=== PATIENT | female | born 1935 | race Caucasian/White ===

== ENCOUNTER 2017-01-25 00:24 | Inpatient (IN) | payer OTHER ==
[~2017-01-25] VITALS: Ht 154.9 cm; Wt 63.5 kg
[2017-01-25 01:10] VITALS: BP 113/64; PULSE 79; RESP 17; TEMP 98.6; O2SAT 95
--- NOTE | 2017-01-25 01:20 | NUR ---
Pt states that she has multiple falls all day. Pt states she been feeling weak were she has been having trouble walking. Pt states she did hit the floor. Pt noted to have bruising on the arms and some redness on the bridge of her nose. Pt rates her headache 5/10. Pt states she has nausea with dizziness and shakiness. Will continue to monitor via property assessment monitor. No distress noted.
--- NOTE | 2017-01-25 01:20 | NUR ---
Placed in room 1 . Placed on adult neuropsychologist, blood pressure machine and pulse oximeter. To gown for exam. Side rails up. Report given to Carlton MOTTA.
[2017-01-25] MEDS ORDERED: ATOR40TA68 PO (01:54)
[2017-01-25] MEDS ORDERED: METO5TAB86 PO (01:59)
[2017-01-25] MEDS ORDERED: DULO60CA41 PO (02:00)
[2017-01-25] MEDS ORDERED: LISI-221 PO (02:03)
[2017-01-25] MEDS ORDERED: LEVO75TA7 PO (02:04)
[2017-01-25] MEDS ORDERED: TAPE100T9 PO (02:05)
[2017-01-25] MEDS ORDERED: RANI150T8 PO (02:06)
[2017-01-25] MEDS ORDERED: HYDR-4100 PO (02:08)
[2017-01-25] MEDS ORDERED: PRO40 PO (02:15)
[2017-01-25] MEDS ORDERED: PREG100C PO (02:15)
[2017-01-25] MEDS ORDERED: NACL 0.9% 1,000 ML IV ONE (02:15)
--- NOTE | 2017-01-25 02:16 | NUR ---
LOUISE Ferrer at bedside examining patient.
--- NOTE | 2017-01-25 02:40 | NUR ---
# 20 gauge angiocath placed to L AC. Use of asceptic technique. Opsite placed over site. Blood return noted. Two patient identifiers used. Blood for lab drawn from site. Flushed with 10 cc of normal saline. No evidence of infiltration noted. Patient tolerated well.
[2017-01-25 03:02] LABS: BASOPHILS % (AUTO) 0.3 % (0.0-2.0); EOSINOPHILS # (AUTO) 0.1 K/uL (0.0-0.4); EOSINOPHILS % (AUTO) 0.6 % (0.0-4.0); HEMATOCRIT 36.7 % (36-48); HEMOGLOBIN 12.6 g/dL (12.0-16.0); LYMPHOCYTES % (AUTO) 8.7 % (20.5-51.5); MEAN CORPUSCULAR HEMOGLOBIN 34 pg (27-31); MEAN CORPUSCULAR HGB CONC 34 % (32-36); MEAN CORPUSCULAR VOLUME 98 fL (79.0-98.0); MONOCYTES # (AUTO) 1.2 K/uL (0.0-1.0); MONOCYTES % (AUTO) 10.1 % (1.7-9.3); NEUTROPHILS # (AUTO) 9.5 K/uL (1.8-7.7); NEUTROPHILS % (AUTO) 80.3 % (40.0-70.0); PLATELET COUNT (AUTO) 186 K/uL (130-430); RED BLOOD CELL COUNT(AUTO) 3.74 MIL/uL (4.2-6.2); RED CELL DISTRIBUTION WIDTH 12.4 % (9.0-15.0); WHITE BLOOD COUNT (AUTO) 11.8 K/uL (4.8-10.8)
[2017-01-25 03:12] LABS: ANION GAP 5 (5-15); CALCIUM 10.7 mg/dL (8.4-11.0); CHLORIDE 103 mmol/L (98-107); CREATININE 1.64 mg/dL (0.55-1.30); GLUCOSE 102 mg/dL (70-99); POTASSIUM 3.4 mmol/L (3.5-5.1); SODIUM SERUM 141 mmol/L (136-145); UREA NITROGEN, BLOOD 35 mg/dL (8-21)
[2017-01-25 03:20] LABS: ALANINE AMINOTRANSFERASE 14 U/L (12-78); ALBUMIN 3.4 g/dL (3.4-4.8); ASPARTATE AMINOTRANSFERASE 50 U/L (10-37); LIPASE 48 U/L (73-393); TOTAL BILIRUBIN 0.8 mg/dL (0.0-1.0); TOTAL PROTEIN, SERUM 6.6 g/dL (6.4-8.3)
--- NOTE | 2017-01-25 03:30 | NUR ---
Pt resting comfortably in bed. VSS. WIll continue to monitor via library monitor. No distress noted.
--- NOTE | 2017-01-25 04:00 | NUR ---
# 16 FR In and Out catheter with use of sterile technique. Immediate return of 300 ml chasity urine noted. Urine sample collected and sent to lab. Pt tolerated procedure well. Patient unable to toilet self.
[2017-01-25 04:27] LABS: BILIRUBIN,URINE NEGATIVE (NEGATIVE); BLOOD, URINE NEGATIVE (NEGATIVE); CLARITY/URINE CLEAR (CLEAR); COLOR,URINE YELLOW (YELLOW); GLUCOSE,URINE NEGATIVE (NEGATIVE); KETONES,URINE NEGATIVE (NEGATIVE); LEUKOCYTE ESTERASE ,URINE NEGATIVE (NEGATIVE); NITRITE, URINE NEGATIVE (NEGATIVE); PH,URINE 5.5 (5.0-8.0); PROTEIN URINE NEGATIVE (NEGATIVE); UROBILINOGEN,URINE 0.2 (0.2-1.0)
--- NOTE | 2017-01-25 06:30 | NUR ---
ADMISSION NOTE Received patient from ER via gurney, received report from RN. Patient admitted with diagnosis of Acute Renal Failure/Dehydration. Patient oriented to hospital routine, call light, toileting and safety-patient verbalized understanding.
[2017-01-25 06:32] VITALS: BP 114/78; PULSE 82; RESP 18; TEMP 99.6; O2SAT 94
--- NOTE | 2017-01-25 06:40 | NUR ---
Patient will be admitted to care of Dr. Dubose. Admitted to Med Surg unit. Will go to room 135. Summary report printed. Report given to Jeannette MOTTA.
--- NOTE | 2017-01-25 07:45 | NUR ---
am assessment received pt in bed. res even and unlabored. denies c/o of pain.not in acute distress.poc discussed with pt .pt verbalized understanding. will continue to monitor
--- NOTE | 2017-01-25 08:30 | NUR ---
iv infiltration iv infiltrated lac. new iv line started. l hand #22 . by AN RN.flushed WELL. IV INFUSING WELL
--- NOTE | 2017-01-25 08:41 | NUR ---
[place] Consult: for Dr. Sandoval, regarding falls, ordered by Dr. Walsh, spoke with
[2017-01-25] MEDS ORDERED: PREGABALIN 100 MG PO SCH (09:00)
[2017-01-25] MEDS ORDERED: NON-FORMULARY MEDICATION (Ranitidine Hcl 150 MG) PO SCH (09:00)
[2017-01-25 09:35] LABS: CKMB RELATIVE INDEX 0.2 (0.0-2.9); CREATINE KINASE MB 3.6 ng/mL (0-3.6)
[2017-01-25] MEDS ORDERED: PREGABALIN 25 MG CAPSULE (LYRICA) PO ONE (10:00)
[2017-01-25] MEDS ORDERED: FAMOTIDINE 20 MG TABLET PO ONE (10:00)
[2017-01-25 10:09] LABS: CKMB RELATIVE INDEX 0.1 (0.0-2.9); CREATINE KINASE MB 2.5 ng/mL (0-3.6)
[2017-01-25] MEDS: D5/0.45 NS 1,000 ML IV SCH (10:38)
--- NOTE | 2017-01-25 10:44 | NUR ---
meds due meds given as ordered pt resting comfortably.
[2017-01-25] MEDS ORDERED: LEVOFLOXACIN 500 MG/D5W 100 ML IV ONE (11:00)
[2017-01-25 12:36] VITALS: BP 115/64; PULSE 80; RESP 16; TEMP 98.5; O2SAT 97
[2017-01-25] MEDS ORDERED: levETIRAcetam 500 MG TABLET PO ONE (13:45)
[2017-01-25] MEDS: PANTOPRAZOLE SODIUM 40 MG TAB PO SCH ×2 (15:13→20:36)
--- NOTE | 2017-01-25 15:14 | NUR ---
rounds pt stable not in acute distress. ivf infusing denies pain or orther discomfort
--- NOTE | 2017-01-25 15:30 | NUR ---
mri pt went for mri in stable condition
--- NOTE | 2017-01-25 16:00 | NUR ---
rounds pt in bed resting comfortably.not in acute distress. bed ackerman provided.pt cleaned and repostioned
[2017-01-25 16:21] VITALS: BP 135/75; PULSE 88; RESP 17; TEMP 99.1; O2SAT 93
[2017-01-25] MEDS: PREGABALIN 25 MG CAPSULE (LYRICA) PO SCH ×2 (16:48→20:36)
--- NOTE | 2017-01-25 17:30 | NUR ---
rounds pt stable not in acute distress. resting comfortably. no s/s of pain or distress noted
--- NOTE | 2017-01-25 19:22 | NUR ---
PAGE DR ESCOBEDO, SPOKE WITH NIXON, PHONE NUMBER: [phone]
--- NOTE | 2017-01-25 19:30 | NUR ---
closing notes pt stable . resting comfortably. son at bed side. ivf infusing well. report given to night rn
--- NOTE | 2017-01-25 19:30 | NUR ---
Report LAB result to Dr. Walsh and med (Haddock) modified Informed Dr. Walsh regarding CK 177, no new order received. Also informed Dr. Walsh regarding Haddock given through CONSULTING ENGINEER, but patient was taking PO at home, not using CONSULTING ENGINEER here. changed med to PO for mod to severe pain.
[2017-01-25 19:48] VITALS: BP 142/76; PULSE 84; RESP 17; TEMP 97.7; O2SAT 91
--- NOTE | 2017-01-25 20:00 | NUR ---
Initial note A/O x 4, no SOB, no chest pain, denied pain at this time, but stated usually c/o pain at back and legs. Skin warm to touch, IV at L hand, patent and continued D5 1/2 NS @ 80 ml/hr. No edema, +2 radial and pedal pulses palpated. Encouraged patient to drink more fluids. Keppra handout given to son (Edwin), provided education. Bed at lowest position, bed alarm on, call light within reach, will continue to monitor patient.
[2017-01-25] MEDS: levETIRAcetam 500 MG TABLET PO SCH (20:36)
--- NOTE | 2017-01-25 22:00 | NUR ---
Rounds Sleeping/resting in bed. No SOB, no chest pain, no grimacing. IV at L hand, patent and continued D5 1/2 NS @ 80 ml/hr. Bed at lowest position, bed alarm on, call light within reach, will continue to monitor patient.
[2017-01-25 23:48] VITALS: BP 125/67; PULSE 96; RESP 16; TEMP 99.5; O2SAT 94
[2017-01-26] MEDS: D5/0.45 NS 1,000 ML IV SCH ×2 (00:54→07:10)
--- NOTE | 2017-01-26 01:27 | NUR ---
Hands off report Sleeping/resting in bed. No SOB, no chest pain, no grimacing. Skin warm to touch. IV at L hand, patent and continued D5 1/2 NS @ 80 ml/hr. Changed chux due to urination and BM. Bed at lowest position, bed alarm on, call light within reach, report given to Kathia. Addendum: 01/26/17 at 0149 by Siddharth Cordoba RN Hands off report to E[place], not Kathia.
--- NOTE | 2017-01-26 01:30 | NUR ---
STARTING NOTE ON TRANSFER CARE Patient in bed sleeping. No S/S of respiratory distress or pain noted. IVF D51/2 NS at 80cc/hr running. Fall precautions in place. Report received from Siddharth MOTTA.
--- NOTE | 2017-01-26 03:21 | NUR ---
NOTE Patient in bed sleeping. No distress or pain noted. Fall precautions in place.
[2017-01-26 03:36] VITALS: BP 135/72; PULSE 91; RESP 15; TEMP 98; O2SAT 95
[2017-01-26] MEDS: HYDROcodone/ACETAMIN 10-325 MG TAB PO PRN ×2 (06:25→19:41)
--- NOTE | 2017-01-26 06:56 | NUR ---
CLOSING NOTE Patient in bed resting comfortably. She stated that she is in lower back pain and she requested Homestead. The nurse administered Homestead. No other S/S of distress noted. Fall precautions in place. Patient's needs met throughout the shift. Report will be given to the day shift nurse.
[2017-01-26] MEDS ORDERED: LEVOTHYROXINE SODIUM 0.075 MG TABLET PO SCH (07:00)
[2017-01-26 07:03] LABS: BASOPHILS # (AUTO) 0.1 K/uL (0.0-0.2); BASOPHILS % (AUTO) 0.4 % (0.0-2.0); EOSINOPHILS # (AUTO) 0.1 K/uL (0.0-0.4); EOSINOPHILS % (AUTO) 0.6 % (0.0-4.0); HEMATOCRIT 36.8 % (36-48); HEMOGLOBIN 12.9 g/dL (12.0-16.0); LYMPHOCYTES # (AUTO) 0.7 K/uL (1.0-5.5); LYMPHOCYTES % (AUTO) 5.4 % (20.5-51.5); MEAN CORPUSCULAR HEMOGLOBIN 34 pg (27-31); MEAN CORPUSCULAR HGB CONC 35 % (32-36); MEAN CORPUSCULAR VOLUME 98 fL (79.0-98.0); MONOCYTES # (AUTO) 1.2 K/uL (0.0-1.0); MONOCYTES % (AUTO) 9.7 % (1.7-9.3); NEUTROPHILS # (AUTO) 10.6 K/uL (1.8-7.7); NEUTROPHILS % (AUTO) 83.9 % (40.0-70.0); PLATELET COUNT (AUTO) 174 K/uL (130-430); RED BLOOD CELL COUNT(AUTO) 3.76 MIL/uL (4.2-6.2); RED CELL DISTRIBUTION WIDTH 12.4 % (9.0-15.0); WHITE BLOOD COUNT (AUTO) 12.7 K/uL (4.8-10.8)
[2017-01-26 07:10] LABS: ALANINE AMINOTRANSFERASE 28 U/L (12-78); ALBUMIN 2.5 g/dL (3.4-4.8); ANION GAP 7 (5-15); ASPARTATE AMINOTRANSFERASE 34 U/L (10-37); CALCIUM 9.3 mg/dL (8.4-11.0); CHLORIDE 103 mmol/L (98-107); CREATININE 1.11 mg/dL (0.55-1.30); GLUCOSE 140 mg/dL (70-99); SODIUM SERUM 141 mmol/L (136-145); TOTAL BILIRUBIN 0.7 mg/dL (0.0-1.0); TOTAL PROTEIN, SERUM 5.8 g/dL (6.4-8.3); UREA NITROGEN, BLOOD 11 mg/dL (8-21)
--- NOTE | 2017-01-26 07:15 | NUR ---
LOW POTASSIUM LEVEL The weight shifter nurse received a call from the lab stating that the patient has a potassium level of 2.6. The information was conveyed to the day shift nurse Le MOTTA.
[2017-01-26 07:22] LABS: POTASSIUM 2.6 mmol/L (3.5-5.1)
[2017-01-26 08:00] VITALS: BP 98/52; PULSE 75; RESP 18; TEMP 98.2; O2SAT 94
--- NOTE | 2017-01-26 08:00 | NUR ---
NOTE PT ASSISTED IN SITTING UP IN BED TO EAT HER BREAKFAST. NO SOB/RESP DISTRESS OR PAIN/DISCOMFORT NOTED AT THIS TIME. IV IN PT'S LEFT FOREARM INTACT AND INFUSING IVF'S AT THIS TIME. NO NEEDS NOTED. CALL LIGHT WITHIN REACH.
[2017-01-26] MEDS ORDERED: FAMOTIDINE 20 MG TABLET PO SCH (09:00)
[2017-01-26] MEDS ORDERED: LEVOFLOXACIN 250 MG/D5W 50 ML IV SCH (09:00)
[2017-01-26] MEDS: PREGABALIN 25 MG CAPSULE (LYRICA) PO SCH ×3 (09:01→20:39)
[2017-01-26] MEDS: levETIRAcetam 500 MG TABLET PO SCH ×2 (09:01→20:39)
[2017-01-26] MEDS: PANTOPRAZOLE SODIUM 40 MG TAB PO SCH ×2 (09:01→20:39)
[2017-01-26] MEDS: POTASSIUM CHLORIDE 30 MEQ in NS 250 ML IV SCH ×2 (09:41→14:40)
--- NOTE | 2017-01-26 10:00 | NUR ---
NOTE PT AMBULATED WITH PHYSICAL THERAPY AND FWW IN HALLWAY. PT RETURNED TO BED AND K-RIDER 30 MEQ (FIRST BAG) STARTED AT THIS TIME. PT DENIES ANY NEEDS AT THIS TIME. CALL LIGHT WITHIN REACH.
--- NOTE | 2017-01-26 10:16 | NUR ---
CALLED [facility] CM OF HCP, RE: TRANSFER TO SNF. CM WILL CALL ME BACK ONCE ARRANGEMENT HAS BEEN FINALIZED.
[2017-01-26 11:07] LABS: FOLATE (FOLIC ACID) >20.0 ng/mL (>3.0)
--- NOTE | 2017-01-26 12:00 | NUR ---
NOTE PT'S IVF'S INFUSING AND PT SITTING UP IN BED AND READING AT THIS TIME. PT REQUESTED AND WAS GIVEN HER BATTERIES FOR HER HEARING AIDS AT THIS TIME. DENIES ANY NEEDS AT THIS TIME. CALL LIGHT WITHIN REACH.
--- NOTE | 2017-01-26 12:05 | NUR ---
NOTE DR GONZALES STATED PT MAYBE DISCHARGE TO SNF TODAY. NO ORDERS AT THIS TIME FOR DISCHARGE.
[2017-01-26 12:22] VITALS: BP 118/50; PULSE 75; RESP 18; TEMP 98.2; O2SAT 94
--- NOTE | 2017-01-26 13:00 | NUR ---
PHYSICAL THERAPY CO-SIGN The Physical Therapy Progress Notes documented by Backfiller have been reviewed. Reviewed/Co-Signed by: Smiley Crane, PT Documentation Done by: Eligio Montes PTA I concur with the documentation of this PRINT BUYER. Plan: continue PT as per plan of care. Addendum: 01/26/17 at 1359 by Smiley Crane PT Amended: Links added.
--- NOTE | 2017-01-26 14:00 | NUR ---
NOTE PT RESTING IN BED AFTER FINISHING LUNCH. PT DENIES AY PAIN/DISCOMFORT OR SOB/RESP DISTRESS AT THIS TIME. IV K-RIDER (POTASSIUM) STILL RUNNING AT THIS TIME THROUGH LEFT FOREARM IV SITE. PT DENIES ANY NEEDS AT THIS TIME. CALL LIGHT WITHIN REACH.
[2017-01-26 16:08] VITALS: BP 105/57; PULSE 76; RESP 18; TEMP 98.8; O2SAT 93
--- NOTE | 2017-01-26 17:00 | NUR ---
NOTE PT RESTING IN BED. PT'S SON HODAN AT BEDSIDE AT THIS TIME. [phone]. IV K-RIDER INFUSING WELL WITH NO ISSUES AT THIS TIME. PT DENIES ANY NEEDS AT THIS TIME. CALL LIGHT WITHIN REACH.
--- NOTE | 2017-01-26 17:04 | NUR ---
CALLED [facility] FOR TRANSPORT TO [facility]. PRICE ACCURACY SUPERVISOR TIME WAS FOR 1999. SPOKE TO NAIN
--- NOTE | 2017-01-26 17:58 | NUR ---
NOTE REPORT GIVEN TO ALEX MOTTA AT [facility]. PT WILL BE IN RM. 218A.
--- NOTE | 2017-01-26 18:15 | NUR ---
NOTE PT'S K-RIDER IVPB WAS COMPLETED AT THIS TIME. PT FINISHED EATING HER DINNER. PT ON THE CELL PHONE WITH FAMILY/FRIEND AT THIS TIME. PT SIGNED DISCHARGE PAPERWORK. QUESTIONS/CONCERNS WERE ANSWERED AT THIS TIME. PT HAS HER STREET CLOTHES AT BEDSIDE, WHICH SYBASE DEVELOPER WILL ASSIST PT IN GETTING DRESSED CLOSER TO 1930 PER PT'S REQUEST. NO SOB/RESP DISTRESS OR PAIN/DISCOMFORT NOTED AT THIS TIME. PT STABLE. CALL LIGHT WITHIN REACH.
[2017-01-26 20:00] VITALS: BP 111/63; PULSE 77; RESP 16; TEMP 98.6; O2SAT 92
--- NOTE | 2017-01-26 21:20 | NUR ---
Discharge Note Report given to paramedics. Patient is in stable condition. No signs of distress noted. All transition of paperwork were given to the patient. She verbalized understanding. All belongings were returned to the patient. IV site and ID band were removed. Patient left the unit via gurney accompanied by paramedics and her son. She is going to [facility] room 218-A. Report was given to Paty by Le MOTTA.
== END 2017-01-26 21:30 | DRG 91 ==
LOC: SED 00:24 → SMU 06:10
DX: G25.3 Myoclonus (principal); N17.0 Acute kidney failure with tubular necrosis; R29.6 Repeated falls; I10 Essential (primary) hypertension; M34.1 CR(E)ST syndrome; E78.5 Hyperlipidemia, unspecified; D72.829 Elevated white blood cell count, unspecified; E87.6 Hypokalemia; R53.81 Other malaise; E86.0 Dehydration; Z79.899 Other long term (current) drug therapy; Z88.0 Allergy status to penicillin
CPT/HCPCS: 36415; 70450-TC; 70551; 72125-TC; 80053; 81003; 82550-TC; 82553-TC; 82607; 82746; 83690-TC; 84302-TC; 84443-TC; 84484; 85025; 93005; 96360; 97116-GP; 97530-GP; 99285; G0482; J1956; J3480; J7030; J7050